=== PATIENT | male | born 1995 | race Native Hawaiian/Other Pacific Islander ===

== ENCOUNTER 2021-08-03 01:26 | Emergency (ER) | payer BC, OTHER ==
[~2021-08-03] VITALS: Ht 163 cm; Wt 83.4 kg
[2021-08-03] MEDS ORDERED: AMOX500C2 PO (03:01)
[2021-08-03] MEDS ORDERED: FLUT9.9S NSEACH (03:01)
--- NOTE | 2021-08-03 03:03 | ED EENT ---
History of Present Illness General Chief Complaint: Oral/Throat Problems Stated Complaint: SORE THROAT/COUGH Nursing Triage Note: C/O SORE THROAT X2 DAYS, COUGH TONIGHT. REPORTS WORK REQUESTING COVID TEST. Source: patient Exam Limitations: no limitations History of Present Illness Date Seen by Provider: Aug 03, 2021 Time Seen by Provider: 01:47 Allergies and Home Medications Allergies Coded Allergies: No Known Drug Allergies (Unverified , 08/03/21) Patient Home Medication List No Active Prescriptions or Reported Meds Past [id number]-[id number] Hx Patient Social History Tobacco Use?: No Substance use?: No Alcohol Use?: Yes Immunizations Up To Date First/Initial COVID19 Vaccinat: 06/28 COVID19 Vaccine Change Control Manager: UNKNOWN Past Medical History Surgery/Hospitalization HX: RIGHT WRIST SURGERY Physical Exam Vital Signs Vital Signs - First Documented 08/03/21 01:37 Temp 36.5 Pulse 65 Resp 16 B/P (MAP) 115/79 (91) Pulse Ox 99 O2 Delivery Room Air Height, Weight, BMI Height: '" Weight: lbs. oz. kg; 31.00 BMI Method: Progress/Results/Core Measures Results/Orders Lab Results Laboratory Tests Test 08/03/21 01:43 Range/Units Influenza Type A (RT-PCR) Not Detected Not Detecte Influenza Type B (RT-PCR) Not Detected Not Detecte SARS-CoV-2 RNA (RT-PCR) Not Detected Not Detecte Group A Streptococcus Screen NEGATIVE NEGATIVE My Orders Orders - PAKO RODRIGUEZ MD Covid 19 Inhouse Test (08/03/21 01:47) Influenza A And B By Pcr (08/03/21 01:47) Rapid Strep A Screen (08/03/21 01:47) Vital Signs/I&O 08/03/21 01:37 Temp 36.5 Pulse 65 Resp 16 B/P (MAP) 115/79 (91) Pulse Ox 99 O2 Delivery Room Air Blood Pressure Mean: 91 Departure Impression Primary Impression: Bilateral otitis media with effusion Additional Impression: Pharyngitis Qualified Codes: J02.9 - Acute pharyngitis, unspecified Disposition: 01 HOME, SELF-CARE Condition: Stable Departure-Patient Inst. Decision time for Depature: 03:00 Referrals: NO,LOCAL PHYSICIAN (PCP/Family) Primary Care Physician Patient Instructions: Ear Infection ED Add. Discharge Instructions: Your Covid, flu, and strep test were all negative. Complete the entire 10 days of your antibiotics. Use Flonase 2 sprays each side twice daily for at least 2 weeks. Call with questions or concerns. Return to care if you have worsening symptoms. All discharge instructions reviewed with patient and/or family. Voiced understanding. Scripts Fluticasone Propionate (Flonase Allergy Relief) 9.9 [place].susp 2 SPRAY NSEACH BID, #1 EACH 2 SPRAYS PER NOSTRIL DAILY X 2 DAYS THEN 1 SPRAY DAILY Prov: PAKO RODRIGUEZ MD 08/03/21 Amoxicillin (Amoxicillin) 500 Mg Capsule 1000 MG PO BID, #40 CAP 0 Refills Prov: PAKO RODRIGUEZ MD 08/03/21 Work/School Note: Work Release Form Date Seen in the Emergency Department: Aug 03, 2021 Return to Work: Aug 04, 2021 Restrictions: Return-No Fever (24hrs) PAKO RODRIGUEZ MD Aug 03, 2021 03:03
[2021-08-03 03:05] VITALS: BP 123/71
== END 2021-08-03 03:07 | disposition home or self-care (01) ==
LOC: ER 01:30
DX: J02.9 Acute pharyngitis, unspecified (principal); H65.93 Unspecified nonsuppurative otitis media, bilateral; Z20.822 Contact with and (suspected) exposure to COVID-19
CPT/HCPCS: 87430; 87636; 99283